=== PATIENT | male | born 1990 | race Caucasian/White ===

== ENCOUNTER 2018-04-26 23:15 | Emergency (ER) | payer OTHER ==
[~2018-04-26] VITALS: Ht 152.4 cm; Wt 45.4 kg
[2018-04-27] MEDS ORDERED: IBUPROFEN 600600 M1 PO (00:11)
[2018-04-27] MEDS ORDERED: NORCO 5-325 TA1 EAC1 PO (00:38)
[2018-04-27 00:42] VITALS: BP 140/88
== END 2018-04-27 00:44 | disposition home or self-care (01) ==
LOC: M.ERS 23:15
DX: S02.5XXA Fracture of tooth (traumatic), initial encounter for closed fracture (principal); W21.00XA Struck by hit or thrown ball, unspecified type, initial encounter; Y93.89 Activity, other specified; Y92.89 Other specified places as the place of occurrence of the external cause; Y99.8 Other external cause status; F17.210 Nicotine dependence, cigarettes, uncomplicated

== ENCOUNTER 2018-05-12 08:47 | Emergency (ER) | payer OTHER ==
[~2018-05-12] VITALS: Ht 149.9 cm; Wt 49.9 kg
[~2018-05-12 08:47] MED LIST: IBUPROFEN 600600 M1 PO; NORCO 5-325 TA1 EAC1 PO
[2018-05-12] MEDS ORDERED: HYDROCODON-ACE1 EAC5 PO (09:09)
[2018-05-12 09:17] VITALS: BP 156/97
== END 2018-05-12 09:24 | disposition home or self-care (01) ==
LOC: M.ERS 08:47
DX: Z76.0 Encounter for issue of repeat prescription (principal); G89.29 Other chronic pain; M79.601 Pain in right arm; M79.602 Pain in left arm